=== PATIENT | male | born 1975 ===

== ENCOUNTER 2018-11-21 07:28 | Day surgery (SDC) | payer OTHER ==
[~2018-11-21] VITALS: Ht 165.1 cm; Wt 91.6 kg
[2018-11-21 07:57] VITALS: BP 117/82; PULSE 63; TEMP 98.4
[2018-11-21 09:00] VITALS: BP 118/81; PULSE 75; TEMP 98.3
--- NOTE | 2018-11-21 09:00 | NUR ---
Pt returns from Endo procedure. Pt ambulates from cart to recliner with RN assist. Pt alert and oriented. Monitors on and alarms set. Call light within reach. Report received from VIVIANE Ta. Pt requests water and muffin. brought to room. Pt denies pain or nausea.
--- NOTE | 2018-11-21 09:15 | NUR ---
Pt taking food and drink well. No complaints.
--- NOTE | 2018-11-21 09:18 | NUR ---
Pt ambulates to restroom with RN assist.
[2018-11-21 09:23] VITALS: BP 123/83; PULSE 53
[2018-11-21 09:30] VITALS: BP 120/77; PULSE 53
--- NOTE | 2018-11-21 09:38 | NUR ---
Discharge instructions given to patient and . All questions answered to their satisfaction. Handed to them are a thank you card and discharge instructions.
--- NOTE | 2018-11-21 09:49 | NUR ---
Pt transferred out of hospital via wheelchair and Elin, assist, to private vehicle driven by .
[2018-11-21 10:08] VITALS: BP 113/67; PULSE 56
== END 2018-11-21 09:49 | disposition home or self-care (01) ==
LOC: SDCO 07:28
DX: Z12.11 Encounter for screening for malignant neoplasm of colon (principal); Z88.8 Allergy status to other drugs, medicaments and biological substances; Z80.0 Family history of malignant neoplasm of digestive organs
CPT/HCPCS: J2250; J3010; J7030